=== PATIENT | male | born 1945 | race Caucasian/White ===

== ENCOUNTER → 2018-04-29 | Outpatient (CLI) | payer MEDICARE ==
[~2018-04-29] VITALS: Ht 177.8 cm; Wt 111.7 kg
[~2018-04-29] MED LIST: CART1TAB4 PO; CHOL20002 PO; DIGO125T PO; FENTANYL PF 100 MCG/2ML ONE; HYDR50TA3 PO; KRIL1CAP22 PO; MIDAZOLAM 1 MG/ML, 5ML ONE; MULT-717 PO; POTA10TA PO; RIVA20TA PO; SODI1TAB15 PO
[2018-04-29 09:46] VITALS: BP 151/80
[2018-04-29 10:35] LABS: ANION GAP 6 mmol/L (5-15); CALCIUM 10.4 mg/dL (8.5-10.1); CHLORIDE 106 mmol/L (98-107)
== END | disposition home or self-care (01) ==
LOC: CVU 07:34
PROVIDERS: ATTEND Internal Medicine Cardiovascular Disease
DX: I08.3 Combined rheumatic disorders of mitral, aortic and tricuspid valves (principal); I48.0 Paroxysmal atrial fibrillation
CPT/HCPCS: 36415; 80048; 80162; 92960; 93005; 93306; J2250; J3010